=== PATIENT | male | born 1935 | race Hispanic/Latino ===

== ENCOUNTER → 2017-07-17 | Outpatient (CLI) | payer OTHER, MEDICARE ==
[~2017-07-17] MED LIST: ALBU1.252 IH; ASPI-1181 PO; ATOR20TA65 PO; FLUT16H NS; LATA2.5D2 OU; LISI-617 PO; LORA10TA7 PO; LOSA25TA21 PO; MELO7.5O PO; NITR0.4T50 SL; SITA1TAB6 PO; TAMS0.4C32 PO; TRAM50TA4 PO
== END | disposition home or self-care (01) ==
LOC: OIH 12:37
PROVIDERS: ATTEND Family Medicine
DX: M17.12 Unilateral primary osteoarthritis, left knee (principal); M47.895 Other spondylosis, thoracolumbar region; Z91.81 History of falling; Z96.652 Presence of left artificial knee joint; Z87.891 Personal history of nicotine dependence
CPT/HCPCS: 71046; 73562

== ENCOUNTER → 2017-07-24 | Outpatient (CLI) | payer OTHER, MEDICARE | END | disposition home or self-care (01) | LOC: OIH 16:44 | PROVIDERS: ATTEND Family Medicine | DX: M47.892 Other spondylosis, cervical region (principal); M50.30 Other cervical disc degeneration, unspecified cervical region; M48.02 Spinal stenosis, cervical region | CPT/HCPCS: 72040 ==

== ENCOUNTER → 2017-08-22 | Outpatient (CLI) | payer OTHER, MEDICARE | LOC: OIH 12:34 | PROVIDERS: ATTEND Family Medicine | DX: R51 Headache (principal) | CPT/HCPCS: 70260 ==

== ENCOUNTER → 2017-09-06 | Outpatient (CLI) | payer OTHER, MEDICARE | END | disposition home or self-care (01) | LOC: RAH 13:01 | PROVIDERS: ATTEND Family Medicine | DX: G31.9 Degenerative disease of nervous system, unspecified (principal) | CPT/HCPCS: 70450 ==

== ENCOUNTER → 2017-10-09 | Outpatient (CLI) | payer OTHER, MEDICARE | END | disposition home or self-care (01) | LOC: OIH 16:15 | PROVIDERS: ATTEND Family Medicine | DX: R07.81 Pleurodynia (principal) | CPT/HCPCS: 71100 ==

== ENCOUNTER 2018-07-15 15:49 | Observation (INO) | payer OTHER, MEDICARE ==
[~2018-07-15] VITALS: Ht 193 cm; Wt 92.2 kg
[~2018-07-15 15:49] MED LIST changes: -LOSA25TA21 PO; +LOSA25TA41 PO
[2018-07-15] MEDS ORDERED: ASPIRIN 325 MG TABLET ONE (15:57)
[2018-07-15 16:11] LABS: BASOPHILS % (AUTO) 0.5 % (0.0-5.0); EOSINOPHILS % (AUTO) 1.3 % (0.0-8.0); HEMATOCRIT 35.9 % (42-54); LYMPHOCYTES % (AUTO) 9.5 % (21.0-51.0); MEAN CORPUSCULAR HEMOGLOBIN 32.1 pg (27.0-33.0); MEAN CORPUSCULAR HGB CONC 34.1 g/dL (32.0-36.0); MEAN CORPUSCULAR VOLUME 94.1 fL (79-99); MONOCYTES % (AUTO) 8.5 % (3.0-13.0); NEUTROPHILS % (AUTO) 80.2 % (40.0-77.0); NUCLEATED RED BLOOD CELLS 0.4 % (0.0-0.19); PLATELET COUNT (AUTO) 307 K/uL (130-400); RED BLOOD CELL COUNT(AUTO) 3.81 MIL/uL (4.50-6.20); RED CELL DISTRIBUTION WIDTH 13.8 % (11.0-15.5); WHITE BLOOD COUNT (AUTO) 7.6 K/uL (4.8-10.8)
[2018-07-15 16:20] LABS: CREATININE 1.7 mg/dL (0.5-1.5); POTASSIUM 4.6 mmol/L (3.5-5.1)
[2018-07-15 16:21] LABS: PARTIAL THROMBOPLASTIN TIME 30.2 SEC (26.3-35.5); PROTHROMBIN TIME 10.5 SEC (9.6-11.6)
[2018-07-15 16:32] LABS: ALBUMIN 2.9 g/dL (3.5-5.0); BILIRUBIN,TOTAL 0.5 mg/dL (0.2-1.0)
[2018-07-15] MEDS ORDERED: METHYLPREDNISOLONE SOD SUCC 125MG/2ML VIAL ONE (16:57)
[2018-07-15] MEDS ORDERED: IPRATROPIUM/ALBUTEROL SULFATE 3 ML SOLUTION IH ONE (17:01)
[2018-07-15] MEDS ORDERED: LEVOFLOXACIN 500 MG TABLET ONE (17:46)
[2018-07-15] MEDS ORDERED: CEFTRIAXONE SODIUM 1 GM ONE (17:46)
[2018-07-15] MEDS ORDERED: NITROGLYCERIN 0.4 MG SL TAB SL PRN (20:00)
[2018-07-15] MEDS ORDERED: ZOLPIDEM TARTRATE 5 MG TAB PO PRN (20:00)
[2018-07-15] MEDS ORDERED: MAG HYDROX/AL HYDROX/SIMETH ES 30 ML SUSP UDCUP PO PRN (20:00)
[2018-07-15] MEDS ORDERED: DIPHENHYDRAMINE HCL 25 MG CAPSULE PO PRN (20:00)
[2018-07-15] MEDS ORDERED: CLONIDINE HCL 0.1 MG TABLET PO PRN (20:00)
[2018-07-15] MEDS ORDERED: LACTULOSE 20 GM/30 ML UDCUP PO PRN (20:00)
[2018-07-15] MEDS ORDERED: ACETAMINOPHEN 325 MG TAB PO PRN ×2 (20:00)
[2018-07-15] MEDS ORDERED: GUAIFENESIN-DM 200/20 MG 10 ML PO PRN (20:00)
[2018-07-15] MEDS ORDERED: ONDANSETRON HCL 4 MG/2 ML VIAL IVP PRN (20:00)
[2018-07-15] MEDS ORDERED: SODIUM CHLORIDE 0.9% 10 ML VIAL IVP SCH (20:00)
[2018-07-15] MEDS ORDERED: DiphenhydrAMINE HCL 50 MG/ML VIAL IVP PRN (20:00)
[2018-07-15 22:40] VITALS: BP 149/76
[2018-07-16] MEDS: METHYLPREDNISOLONE SOD SUCC 125MG/2ML VIAL IVP SCH ×2 (00:13→09:25)
[2018-07-16 00:45] LABS: CREATINE KINASE, TOTAL 57 U/L (21-232); MYOGLOBIN 91 ng/mL (10-92); TROPONIN I < 0.04 ng/mL (0.00-0.06)
[2018-07-16 04:00] VITALS: BP 125/71
[2018-07-16 07:00] VITALS: BP 135/74
[2018-07-16 08:45] LABS: CREATINE KINASE, TOTAL 52 U/L (21-232); MYOGLOBIN 101 ng/mL (10-92); TROPONIN I < 0.04 ng/mL (0.00-0.06)
[2018-07-16] MEDS: PANTOPRAZOLE SODIUM 40 MG TABLET.DR PO SCH (09:25)
[2018-07-16 11:00] VITALS: BP 146/82
[2018-07-16] MEDS: ENOXAPARIN SODIUM 40 MG/0.4 ML SYRINGE SQ SCH (11:34)
[2018-07-16] MEDS: INSULIN HUMULIN R 100 UNIT/ML 3ML SQ SCH ×3 (11:38→21:00)
[2018-07-16] MEDS: IPRATROPIUM/ALBUTEROL SULFATE 3 ML SOLUTION IH SCH ×3 (12:18→23:14)
[2018-07-16 16:00] VITALS: BP 133/65
[2018-07-16] MEDS: LEVOFLOXACIN 500 MG/D5W 100 ML 100 ML IV SCH (17:07)
[2018-07-16 20:00] VITALS: BP 123/69
[2018-07-17] VITALS: BP 116/67
[2018-07-17 04:00] VITALS: BP 130/78
[2018-07-17 04:58] LABS: BASOPHILS % (AUTO) 0.2 % (0.0-5.0); EOSINOPHILS % (AUTO) 0.1 % (0.0-8.0); HEMATOCRIT 33.6 % (42-54); LYMPHOCYTES % (AUTO) 7.6 % (21.0-51.0); MEAN CORPUSCULAR HEMOGLOBIN 32.7 pg (27.0-33.0); MEAN CORPUSCULAR VOLUME 93.5 fL (79-99); MONOCYTES % (AUTO) 6.9 % (3.0-13.0); NEUTROPHILS % (AUTO) 85.2 % (40.0-77.0); PLATELET COUNT (AUTO) 351 K/uL (130-400); RED CELL DISTRIBUTION WIDTH 13.7 % (11.0-15.5); WHITE BLOOD COUNT (AUTO) 11.7 K/uL (4.8-10.8)
[2018-07-17 05:17] LABS: ALBUMIN 2.8 g/dL (3.5-5.0); BILIRUBIN,TOTAL 0.3 mg/dL (0.2-1.0); CREATININE 1.5 mg/dL (0.5-1.5); POTASSIUM 4.4 mmol/L (3.5-5.1); TOTAL PROTEIN, SERUM 6.7 g/dL (6.0-8.3)
[2018-07-17] MEDS: IPRATROPIUM/ALBUTEROL SULFATE 3 ML SOLUTION IH SCH ×3 (06:09→18:17)
[2018-07-17] MEDS: INSULIN HUMULIN R 100 UNIT/ML 3ML SQ SCH ×3 (06:24→16:45)
[2018-07-17 07:00] VITALS: BP 113/76
[2018-07-17] MEDS: ENOXAPARIN SODIUM 40 MG/0.4 ML SYRINGE SQ SCH (09:00)
[2018-07-17] MEDS ORDERED: REGADENOSON 0.4 MG/5 ML PF SYG IVP SCH (10:30)
[2018-07-17 11:00] VITALS: BP 109/59
[2018-07-17] MEDS: PANTOPRAZOLE SODIUM 40 MG TABLET.DR PO SCH (15:07)
[2018-07-17 16:00] VITALS: BP 120/73
[2018-07-17] MEDS: LEVOFLOXACIN 500 MG/D5W 100 ML 100 ML IV SCH (16:37)
--- NOTE | 2018-07-17 17:37 | NUR ---
DCP CM met with pt and family discussed dc plans. Pt is semi-independent mostly, lives at home with cousin and michelle. Uses a walker, wheelchair, shower chair, bedside commode, has provider 15hrs/wk, and active w/[facility] 1x/wk. Pt feels safe to go back home, michelle assists with transportation and needs as necessary. DC plan to home once stable. CM to cont to follow up. Addendum: 07/17/18 at 1739 by CHRISSY VAN LVN CM Amended: Links added.
--- NOTE | 2018-07-17 20:30 | NUR ---
[facility] PATIENT AND PROVIDER JOVANY, GIVEN DISCHARGE INSTRUCTIONS AND FOLLOW APPT DATE WITH DR CRAIG. INSTRUCTED TO CALL MD OFFICE FOR TIME OF APPT. BOTH VERBALIZE BACK UNDERSTANDING TO ALL DISCHARGE INSTRUCTIONS GIVEN. NO NEW MEDS ORDERED ON DISCHARGE. PIV CATHETER REMOVED INTACT WITH NO REDNESS OR SWELLING NOTED TO SITE. PATIENT TAKEN WITH ALL PERSONAL BELONGINGS VIA W/C BY STAFF MEMBER TO PRIVATE VEHICLE.
== END 2018-07-17 20:30 | disposition home or self-care (01) ==
LOC: EDH 15:49 → EDHIP 19:00 → 3BH 22:26
PROVIDERS: ADMIT Family Medicine; ATTEND Family Medicine
DX: J44.1 Chronic obstructive pulmonary disease with (acute) exacerbation (principal); R07.89 Other chest pain; N40.0 Benign prostatic hyperplasia without lower urinary tract symptoms; E11.9 Type 2 diabetes mellitus without complications; I10 Essential (primary) hypertension; I25.10 Atherosclerotic heart disease of native coronary artery without angina pectoris; Z95.1 Presence of aortocoronary bypass graft; Z96.659 Presence of unspecified artificial knee joint; Z90.49 Acquired absence of other specified parts of digestive tract; Z88.0 Allergy status to penicillin
CPT/HCPCS: 36415 ×3; 71045; 78452; 80053 ×2; 82550 ×3; 82948 ×7; 83874 ×3; 83880; 84484 ×3; 85025 ×2; 85610; 85730; 93005; 93017; 93306; 94640 ×7; 94664; 96365; 96366; 96372 ×2; 96375; 96376; 99284; A9500 ×2; G0378 ×49; J0696; J1650; J1815 ×4; J1956 ×2; J2785; J2930 ×3; 96374

== ENCOUNTER → 2020-05-05 | Outpatient (CLI) | payer OTHER, MEDICARE ==
[~2020-05-05] MED LIST changes: -ASPI-1181 PO; +LATA2.5D14 OU; -LATA2.5D2 OU; -LORA10TA7 PO; -MELO7.5O PO
== END | disposition home or self-care (01) ==
LOC: OIH 15:53
PROVIDERS: ATTEND Family Medicine
DX: Z45.2 Encounter for adjustment and management of vascular access device (principal); J90 Pleural effusion, not elsewhere classified; R06.02 Shortness of breath
CPT/HCPCS: 71046

== ENCOUNTER 2020-05-11 10:25 | Emergency (ER) | payer OTHER, MEDICARE ==
[2020-05-11 12:05] LABS: APPEARANCE,URINE TURBID (CLEAR); BILIRUBIN,URINE NEGATIVE (NEGATIVE); COLOR,URINE YELLOW (YELLOW); GLUCOSE, URINE (UA) NEGATIVE (NEGATIVE); KETONES,URINE NEGATIVE (NEGATIVE); LEUKOCYTE ESTERASE ,URINE SMALL (NEGATIVE); NITRATE,URINE POSITIVE (NEGATIVE); OCCULT BLOOD,URINE LARGE (NEGATIVE); PH,URINE 5.5 (5.0-8.0); PROTEIN,URINE 100 mg/dL (NEGATIVE); UROBILINOGEN,URINE 0.2 mg/dL (0.2-1.0)
[2020-05-11 12:43] LABS: RBC,URINE 51-100 /HPF (0-1)
[2020-05-11 12:47] LABS: BACTERIA,URINE Moderate /HPF (None Seen); SQUAMOUS EPITHELIAL CELL,UR Rare /HPF (0-2); WBC,URINE 26-50 /HPF (0-1)
== END 2020-05-11 13:18 | disposition home or self-care (01) ==
LOC: EDH 10:25
DX: N39.0 Urinary tract infection, site not specified (principal); I50.9 Heart failure, unspecified; E11.9 Type 2 diabetes mellitus without complications; Z87.891 Personal history of nicotine dependence; Z88.0 Allergy status to penicillin
CPT/HCPCS: 81001; 87077; 87088; 87186